=== PATIENT | female | born 1960 | race Caucasian/White ===

== ENCOUNTER 2019-06-29 12:35 | Inpatient (IN) ==
[2019-06-29] MEDS ORDERED: Naloxone 0.4 MG/ML INJ IVP PRN (15:45)
[2019-06-29] MEDS ORDERED: *HR* HYDROcodone/Acet 5/325 mg TABLET PO PRN (15:45)
[2019-06-29] MEDS ORDERED: Acetaminophen 325 MG TABLET PO PRN (15:45)
[2019-06-29] MEDS ORDERED: 0.9 % Sodium Chloride 1,000 ML IVC SCH (15:45)
[2019-06-29] MEDS ORDERED: *HR* OxyCODONE Immed Rel 5 MG TABLET PO PRN (15:45)
[2019-06-29] MEDS ORDERED: *HR* Dextrose 50 % in Water (Syg) 50 ML SYRINGE IVP PRN (16:12)
[2019-06-29] MEDS ORDERED: D5% in Water 1,000 ML IVC PRN (16:12)
[2019-06-29] MEDS ORDERED: Dextrose Gel 15 GM/37.5 ML TUBE PO PRN ×2 (16:12)
[2019-06-29] MEDS: Nicotine 21 MG PATCH.TD24 TD SCH (18:02)
[2019-06-29] MEDS: Insulin LISPRO 300 UNITS/3 ML VIAL SQ SCH (18:02)
[2019-06-29] MEDS: carvediloL 6.25 MG TABLET PO SCH (18:02)
[2019-06-29] MEDS: *HR* Heparin 5,000 UNIT/ML VIAL SQ SCH (18:02)
[2019-06-29 18:29] LABS: Estimated Average Glucose 197 mg/dl
[2019-06-29] MEDS ORDERED: Gabapentin 300 MG CAPSULE PO SCH (21:45)
[2019-06-30] MEDS: *HR* Heparin 5,000 UNIT/ML VIAL SQ SCH ×2 (04:55→16:50)
[2019-06-30 05:16] LABS: Basophils % 0.4 %; Eosinophils # 0.1 K/mcL (0.0-0.6); Eosinophils % 0.9 %; Hematocrit 34.5 % (35.3-44.9); Hemoglobin 10.7 g/dL (11.5-15.4); Immature Granulocytes % 0.2 % (0-4); Lymphocytes # 0.9 K/mcL (0.6-4.6); Lymphocytes % 11.1 %; Mean Corpuscular Hemoglobin 28.6 pg (28.0-33.3); Mean Corpuscular Volume 92.2 fL (83.0-100.0); Mean Platelet Volume 12.3 fL (9.4-12.4); Monocytes # 0.6 K/mcL (0.0-1.3); Monocytes % 7.1 %; Neutrophils # 6.5 K/mcL (1.6-8.9); Platelet Count 183 K/mcL (140-400); Red Blood Count 3.74 M/mcL (3.82-4.97); Red Cell Distribution Width 14.9 % (11.5-14.5); Segmented Neutrophils % 80.3 %
[2019-06-30 05:34] LABS: Potassium 4.3 mEq/L (3.5-5.1)
[2019-06-30] MEDS ORDERED: Vancomycin 1,000 MG, 0.9 % Sodium Chloride 1,000 ML IR ONE ×2 (06:00→19:24)
[2019-06-30] MEDS: Insulin LISPRO 300 UNITS/3 ML VIAL SQ SCH ×3 (07:34→16:50)
[2019-06-30] MEDS: Nicotine 21 MG PATCH.TD24 TD SCH (08:43)
[2019-06-30] MEDS: carvediloL 6.25 MG TABLET PO SCH (08:43)
[2019-06-30] MEDS ORDERED: Aspirin 81 MG TAB.CHEW PO SCH (09:00)
[2019-06-30] MEDS ORDERED: Gabapentin 300 MG CAPSULE PO SCH ×2 (09:00→21:00)
[2019-06-30] MEDS ORDERED: Ipratropium/Albuterol Neb 3 ML IH PRN ×2 (11:58→19:24)
[2019-06-30] MEDS ORDERED: lisinopriL 20 MG TABLET PO SCH (12:00)
[2019-06-30] MEDS ORDERED: Acetaminophen IV 1,000 MG/100 ML INFUS..BTL ONE (18:36)
[2019-06-30] MEDS ORDERED: Lidocaine -MPF 2% 2 ML VIAL ONE (18:38)
[2019-06-30] MEDS ORDERED: *HR* Dextrose 50 % in Water (Syg) 50 ML SYRINGE IVP PRN (19:24)
[2019-06-30] MEDS ORDERED: Naloxone 0.4 MG/ML INJ IVP PRN (19:24)
[2019-06-30] MEDS ORDERED: Acetaminophen 325 MG TABLET PO PRN (19:24)
[2019-06-30] MEDS ORDERED: Dextrose Gel 15 GM/37.5 ML TUBE PO PRN ×2 (19:24)
[2019-06-30] MEDS ORDERED: D5% in Water 1,000 ML IVC PRN (19:24)
[2019-06-30] MEDS: QUEtiapine Fumarate 300 MG TABLET PO SCH (20:14)
[2019-06-30] MEDS: Gabapentin 300 MG CAPSULE PO SCH (20:14)
[2019-06-30] MEDS ORDERED: QUEtiapine Fumarate 300 MG TABLET PO SCH (21:00)
[2019-07-01] MEDS: *HR* Heparin 5,000 UNIT/ML VIAL SQ SCH ×2 (05:23→18:12)
[2019-07-01 05:27] LABS: Basophils % 0.2 %; Eosinophils % 0.5 %; Hematocrit 32.8 % (35.3-44.9); Hemoglobin 10.3 g/dL (11.5-15.4); Immature Granulocytes % 0.5 % (0-4); Lymphocytes # 0.6 K/mcL (0.6-4.6); Lymphocytes % 7.6 %; Mean Corpuscular HGB Conc 31.4 g/dL (31.6-35.5); Mean Corpuscular Hemoglobin 28.9 pg (28.0-33.3); Mean Corpuscular Volume 92.1 fL (83.0-100.0); Mean Platelet Volume 11.9 fL (9.4-12.4); Monocytes # 0.6 K/mcL (0.0-1.3); Monocytes % 6.6 %; Platelet Count 163 K/mcL (140-400); Red Blood Count 3.56 M/mcL (3.82-4.97); Red Cell Distribution Width 14.9 % (11.5-14.5); Segmented Neutrophils % 84.6 %; White Blood Count 8.3 K/mcL (4.3-11.1)
[2019-07-01 05:48] LABS: Calcium 7.8 mg/dL (8.6-10.3); Magnesium 1.6 mg/dL (1.6-2.6); Phosphorous 3.8 mg/dL (2.7-4.5); Potassium 4.1 mEq/L (3.5-5.1)
[2019-07-01] MEDS: carvediloL 6.25 MG TABLET PO SCH ×3 (07:58→18:12)
[2019-07-01] MEDS: Insulin LISPRO 300 UNITS/3 ML VIAL SQ SCH ×4 (08:47→22:16)
[2019-07-01] MEDS: lisinopriL 20 MG TABLET PO SCH (08:48)
[2019-07-01] MEDS: Nicotine 21 MG PATCH.TD24 TD SCH (08:48)
[2019-07-01] MEDS: Aspirin 81 MG TAB.CHEW PO SCH (08:48)
[2019-07-01] MEDS: Gabapentin 300 MG CAPSULE PO SCH ×2 (08:48→21:38)
[2019-07-01] MEDS ORDERED: Piperacillin/Tazobactam 3.375 GM in 0.9 % Sodium Chloride Mini Bag 100 ML IVPB SCH (09:30)
[2019-07-01] MEDS: *HR* OxyCODONE Immed Rel 5 MG TABLET PO PRN (11:52)
[2019-07-01] MEDS: Piperacillin/Tazobactam 3.375 GM in 0.9 % Sodium Chloride Mini Bag 100 ML IVPB SCH (18:12)
[2019-07-01] MEDS: QUEtiapine Fumarate 300 MG TABLET PO SCH (21:38)
[2019-07-02] MEDS: Piperacillin/Tazobactam 3.375 GM in 0.9 % Sodium Chloride Mini Bag 100 ML IVPB SCH ×2 (01:50→11:09)
[2019-07-02 06:36] LABS: Calcium 6.7 mg/dL (8.6-10.3); Potassium 3.9 mEq/L (3.5-5.1)
[2019-07-02] MEDS: *HR* Heparin 5,000 UNIT/ML VIAL SQ SCH ×2 (07:13→18:11)
[2019-07-02] MEDS ORDERED: Aminoglycoside Consult 1 EACH MC ONE (08:15)
[2019-07-02] MEDS: Insulin LISPRO 300 UNITS/3 ML VIAL SQ SCH ×4 (08:50→20:56)
[2019-07-02] MEDS: Gabapentin 300 MG CAPSULE PO SCH ×2 (08:51→20:50)
[2019-07-02] MEDS: carvediloL 6.25 MG TABLET PO SCH ×2 (08:51→16:01)
[2019-07-02] MEDS: Aspirin 81 MG TAB.CHEW PO SCH (08:51)
[2019-07-02] MEDS: lisinopriL 20 MG TABLET PO SCH (08:51)
[2019-07-02] MEDS: Nicotine 21 MG PATCH.TD24 TD SCH (08:51)
[2019-07-02] MEDS: *HR* OxyCODONE Immed Rel 5 MG TABLET PO PRN ×2 (11:56→18:11)
[2019-07-02] MEDS: *HR* HYDROcodone/Acet 5/325 mg TABLET PO PRN (16:08)
[2019-07-02] MEDS ORDERED: levoFLOXacin 500 MG/100 ML 500 MG/100 ML BAG IVPB SCH (19:00)
[2019-07-02] MEDS: QUEtiapine Fumarate 300 MG TABLET PO SCH (20:50)
[2019-07-03 02:51] LABS: Hematocrit 28.9 % (35.3-44.9); Hemoglobin 8.8 g/dL (11.5-15.4); Mean Corpuscular HGB Conc 30.4 g/dL (31.6-35.5); Mean Corpuscular Hemoglobin 28.3 pg (28.0-33.3); Mean Corpuscular Volume 92.9 fL (83.0-100.0); Mean Platelet Volume 12.4 fL (9.4-12.4); Platelet Count 150 K/mcL (140-400); Red Blood Count 3.11 M/mcL (3.82-4.97); Red Cell Distribution Width 14.6 % (11.5-14.5); White Blood Count 5.4 K/mcL (4.3-11.1)
[2019-07-03 03:39] LABS: Calcium 7.1 mg/dL (8.6-10.3); Potassium 5.4 mEq/L (3.5-5.1)
[2019-07-03] MEDS: *HR* Heparin 5,000 UNIT/ML VIAL SQ SCH ×2 (05:41→17:15)
[2019-07-03] MEDS: Aspirin 81 MG TAB.CHEW PO SCH (08:40)
[2019-07-03] MEDS: Gabapentin 300 MG CAPSULE PO SCH (08:40)
[2019-07-03] MEDS: Nicotine 21 MG PATCH.TD24 TD SCH (08:41)
[2019-07-03] MEDS: polyethylene glycoL 3350 17 GM POWD.PACK PO SCH (08:41)
[2019-07-03] MEDS: carvediloL 6.25 MG TABLET PO SCH ×2 (08:41→17:15)
[2019-07-03] MEDS: Insulin LISPRO 300 UNITS/3 ML VIAL SQ SCH ×4 (08:42→21:41)
[2019-07-03] MEDS ORDERED: Calcium Gluconate 1gm/50mL 1 GM/50 ML BAG IVPB ONE (11:34)
[2019-07-03] MEDS: ceFAZolin 1,000 MG in Water for inj. (sterile) 10 ML IVP SCH (17:15)
[2019-07-03] MEDS: QUEtiapine Fumarate 300 MG TABLET PO SCH (21:42)
[2019-07-04] MEDS: ceFAZolin 1,000 MG in Water for inj. (sterile) 10 ML IVP SCH ×2 (03:16→16:13)
[2019-07-04 05:18] LABS: Calcium 7.2 mg/dL (8.6-10.3); Potassium 5.2 mEq/L (3.5-5.1)
[2019-07-04] MEDS: *HR* Heparin 5,000 UNIT/ML VIAL SQ SCH ×2 (05:58→17:15)
[2019-07-04] MEDS: Insulin LISPRO 300 UNITS/3 ML VIAL SQ SCH ×4 (07:50→21:32)
[2019-07-04] MEDS: carvediloL 6.25 MG TABLET PO SCH ×2 (08:52→17:15)
[2019-07-04] MEDS: Aspirin 81 MG TAB.CHEW PO SCH (08:52)
[2019-07-04] MEDS: Nicotine 21 MG PATCH.TD24 TD SCH (08:53)
[2019-07-04] MEDS: Gabapentin 300 MG CAPSULE PO SCH (08:53)
[2019-07-04] MEDS: polyethylene glycoL 3350 17 GM POWD.PACK PO SCH (08:53)
[2019-07-04] MEDS ORDERED: Lidocaine -MPF 1% 5 ML AMPUL INFILT ONE (13:39)
[2019-07-04] MEDS: QUEtiapine Fumarate 300 MG TABLET PO SCH (21:31)
[2019-07-04 22:07] LABS: Protein/Creatinine Ratio,Urine 4.63 mg/mg (0.00-0.20); Sodium, Urine 43.3 mEq/L
[2019-07-04 22:39] LABS: Bilirubin,Urine Negative (Negative); Blood,Urine Negative (Negative); Clarity,Urine Clear (Clear); Color,Urine Yellow (Yellow); Glucose,Urine (UA) 100 mg/dL (Normal); Ketones,Urine Negative (Negative); Leukocyte Esterase,Urine Negative (Negative); Nitrite,Urine Negative (Negative); Protein,Urine >=300 mg/dL (Neg-Trace); Specific Gravity,Urine 1.013 (1.010-1.025); Urobilinogen,Urine Normal (Normal)
[2019-07-04 22:41] LABS: Bacteria,Urine None Seen per hpf (None-Few); Hyaline Casts,Urine None Seen per lpf (None-Few); Squamous Epithelial Cell,Urine Moderate per lpf (None-Few); WBC,Urine 0-3 per hpf (0-3)
[2019-07-05] MEDS: ceFAZolin 1,000 MG in Water for inj. (sterile) 10 ML IVP SCH ×2 (04:08→17:20)
[2019-07-05 05:40] LABS: Hematocrit 27.3 % (35.3-44.9); Hemoglobin 8.6 g/dL (11.5-15.4); Mean Corpuscular HGB Conc 31.5 g/dL (31.6-35.5); Mean Corpuscular Hemoglobin 28.4 pg (28.0-33.3); Mean Corpuscular Volume 90.1 fL (83.0-100.0); Mean Platelet Volume 12.5 fL (9.4-12.4); Platelet Count 173 K/mcL (140-400); Red Blood Count 3.03 M/mcL (3.82-4.97); Red Cell Distribution Width 14.5 % (11.5-14.5); White Blood Count 5.8 K/mcL (4.3-11.1)
[2019-07-05] MEDS: *HR* Heparin 5,000 UNIT/ML VIAL SQ SCH ×2 (05:57→17:20)
[2019-07-05 06:02] LABS: Calcium 7.6 mg/dL (8.6-10.3); Potassium 5.8 mEq/L (3.5-5.1)
[2019-07-05] MEDS ORDERED: 0.9 % Sodium Chloride 250 ML IVC PRN (07:21)
[2019-07-05] MEDS ORDERED: 0.9 % Sodium Chloride 1,000 ML PRIME SCH (07:30)
[2019-07-05] MEDS: Insulin LISPRO 300 UNITS/3 ML VIAL SQ SCH ×4 (07:30→21:04)
[2019-07-05 08:33] LABS: Hepatitis B Surface Antibody < 3.10 mIU/mL
[2019-07-05 08:44] LABS: Hepatitis B Surface Antigen Nonreactive (Nonreactive)
[2019-07-05] MEDS ORDERED: *HR* Heparin 5,000 UNIT/ML VIAL ONE (09:34)
[2019-07-05] MEDS: amLODIPine 5 MG TABLET PO SCH (10:29)
[2019-07-05] MEDS: Gabapentin 300 MG CAPSULE PO SCH (10:29)
[2019-07-05] MEDS: Aspirin 81 MG TAB.CHEW PO SCH (10:29)
[2019-07-05] MEDS: carvediloL 6.25 MG TABLET PO SCH ×2 (10:29→17:21)
[2019-07-05] MEDS: Nicotine 21 MG PATCH.TD24 TD SCH (10:30)
[2019-07-05] MEDS: polyethylene glycoL 3350 17 GM POWD.PACK PO SCH (10:30)
[2019-07-05] MEDS: *HR* OxyCODONE Immed Rel 5 MG TABLET PO PRN (10:47)
[2019-07-05 10:56] LABS: Folate 5.2 ng/mL (3.0-16.0); Vitamin B12 328 pg/mL (250-1100)
[2019-07-05] MEDS ORDERED: *HR* Heparin 10,000 UNIT/10 ML VIAL IV PRN (16:32)
[2019-07-05] MEDS: *HR* Heparin 10,000 UNIT/10 ML VIAL ONE ×2 (16:41→17:31)
[2019-07-05] MEDS: QUEtiapine Fumarate 300 MG TABLET PO SCH (21:04)
[2019-07-05] MEDS: Sennosides/Docusate Sodium TABLET PO SCH (21:04)
[2019-07-06] MEDS: ceFAZolin 1,000 MG in Water for inj. (sterile) 10 ML IVP SCH ×2 (03:41→16:32)
[2019-07-06 03:59] LABS: Basophils % 0.2 %; Eosinophils # 0.1 K/mcL (0.0-0.6); Eosinophils % 1.7 %; Hematocrit 24.1 % (35.3-44.9); Hemoglobin 7.7 g/dL (11.5-15.4); Immature Granulocytes % 0.2 % (0-4); Lymphocytes # 1.1 K/mcL (0.6-4.6); Lymphocytes % 21.9 %; Mean Corpuscular Hemoglobin 28.7 pg (28.0-33.3); Mean Corpuscular Volume 89.9 fL (83.0-100.0); Mean Platelet Volume 11.8 fL (9.4-12.4); Monocytes # 0.5 K/mcL (0.0-1.3); Monocytes % 9.9 %; Neutrophils # 3.2 K/mcL (1.6-8.9); Platelet Count 147 K/mcL (140-400); Red Blood Count 2.68 M/mcL (3.82-4.97); Red Cell Distribution Width 14.5 % (11.5-14.5); Segmented Neutrophils % 66.1 %; White Blood Count 4.8 K/mcL (4.3-11.1)
[2019-07-06 04:14] LABS: Calcium 7.5 mg/dL (8.6-10.3); Magnesium 1.8 mg/dL (1.6-2.6); Phosphorous 4.6 mg/dL (2.7-4.5); Potassium 5.1 mEq/L (3.5-5.1)
[2019-07-06] MEDS: *HR* Heparin 5,000 UNIT/ML VIAL SQ SCH ×2 (05:58→16:33)
[2019-07-06] MEDS ORDERED: 0.9 % Sodium Chloride 250 ML IVC PRN (07:45)
[2019-07-06] MEDS: Nicotine 21 MG PATCH.TD24 TD SCH (07:52)
[2019-07-06] MEDS: Insulin LISPRO 300 UNITS/3 ML VIAL SQ SCH ×4 (07:52→20:07)
[2019-07-06] MEDS: carvediloL 6.25 MG TABLET PO SCH ×2 (07:54→16:33)
[2019-07-06] MEDS: polyethylene glycoL 3350 17 GM POWD.PACK PO SCH (07:54)
[2019-07-06] MEDS: lisinopriL 20 MG TABLET PO SCH (07:54)
[2019-07-06] MEDS: amLODIPine 5 MG TABLET PO SCH (07:54)
[2019-07-06] MEDS: Gabapentin 300 MG CAPSULE PO SCH (07:54)
[2019-07-06] MEDS: Aspirin 81 MG TAB.CHEW PO SCH (07:54)
[2019-07-06] MEDS: Sennosides/Docusate Sodium TABLET PO SCH ×2 (07:54→20:07)
[2019-07-06] MEDS ORDERED: *HR* Heparin 10,000 UNIT/10 ML VIAL IV PRN (10:05)
[2019-07-06] MEDS: QUEtiapine Fumarate 300 MG TABLET PO SCH (20:07)
[2019-07-07] MEDS: ceFAZolin 1,000 MG in Water for inj. (sterile) 10 ML IVP SCH (03:31)
[2019-07-07 03:57] LABS: Basophils % 0.2 %; Eosinophils # 0.1 K/mcL (0.0-0.6); Eosinophils % 1.2 %; Hematocrit 25.8 % (35.3-44.9); Hemoglobin 8.1 g/dL (11.5-15.4); Immature Granulocytes % 0.4 % (0-4); Lymphocytes # 1.2 K/mcL (0.6-4.6); Lymphocytes % 23.8 %; Mean Corpuscular HGB Conc 31.4 g/dL (31.6-35.5); Mean Corpuscular Hemoglobin 27.9 pg (28.0-33.3); Mean Platelet Volume 12.1 fL (9.4-12.4); Monocytes # 0.6 K/mcL (0.0-1.3); Monocytes % 11.7 %; Neutrophils # 3.1 K/mcL (1.6-8.9); Platelet Count 156 K/mcL (140-400); Red Cell Distribution Width 14.3 % (11.5-14.5); Segmented Neutrophils % 62.7 %
[2019-07-07 04:15] LABS: Calcium 7.6 mg/dL (8.6-10.3); Potassium 5.1 mEq/L (3.5-5.1)
[2019-07-07] MEDS: *HR* Heparin 5,000 UNIT/ML VIAL SQ SCH ×2 (05:42→16:21)
[2019-07-07] MEDS: Insulin LISPRO 300 UNITS/3 ML VIAL SQ SCH ×4 (07:43→21:19)
[2019-07-07] MEDS: Gabapentin 300 MG CAPSULE PO SCH ×2 (08:01→21:18)
[2019-07-07] MEDS: lisinopriL 20 MG TABLET PO SCH (08:01)
[2019-07-07] MEDS: carvediloL 6.25 MG TABLET PO SCH ×2 (08:01→16:21)
[2019-07-07] MEDS: amLODIPine 5 MG TABLET PO SCH (08:01)
[2019-07-07] MEDS: polyethylene glycoL 3350 17 GM POWD.PACK PO SCH (08:02)
[2019-07-07] MEDS: Nicotine 21 MG PATCH.TD24 TD SCH (08:02)
[2019-07-07] MEDS: Aspirin 81 MG TAB.CHEW PO SCH (08:02)
[2019-07-07] MEDS: Sennosides/Docusate Sodium TABLET PO SCH ×2 (08:03→21:18)
[2019-07-07] MEDS: *HR* HYDROcodone/Acet 5/325 mg TABLET PO PRN (12:15)
[2019-07-07] MEDS: ceFAZolin 2,000 MG in 0.9 % Sodium Chloride 100 ML IVPB SCH (16:20)
[2019-07-07] MEDS: QUEtiapine Fumarate 300 MG TABLET PO SCH (21:18)
[2019-07-08] MEDS: ceFAZolin 2,000 MG in 0.9 % Sodium Chloride 100 ML IVPB SCH ×2 (04:21→17:05)
[2019-07-08 04:53] LABS: Hematocrit 25.1 % (35.3-44.9); Mean Corpuscular HGB Conc 31.9 g/dL (31.6-35.5); Mean Corpuscular Hemoglobin 28.8 pg (28.0-33.3); Mean Corpuscular Volume 90.3 fL (83.0-100.0); Platelet Count 154 K/mcL (140-400); Red Blood Count 2.78 M/mcL (3.82-4.97); Red Cell Distribution Width 14.6 % (11.5-14.5); White Blood Count 5.8 K/mcL (4.3-11.1)
[2019-07-08 05:12] LABS: Calcium 7.7 mg/dL (8.6-10.3); Potassium 5.9 mEq/L (3.5-5.1)
[2019-07-08] MEDS: *HR* Heparin 5,000 UNIT/ML VIAL SQ SCH ×2 (06:23→17:08)
[2019-07-08] MEDS: Insulin LISPRO 300 UNITS/3 ML VIAL SQ SCH ×4 (07:22→21:03)
[2019-07-08] MEDS: Nicotine 21 MG PATCH.TD24 TD SCH (07:23)
[2019-07-08] MEDS: Aspirin 81 MG TAB.CHEW PO SCH (07:23)
[2019-07-08] MEDS: carvediloL 6.25 MG TABLET PO SCH ×2 (07:23→17:04)
[2019-07-08] MEDS: Sennosides/Docusate Sodium TABLET PO SCH ×2 (07:23→21:03)
[2019-07-08] MEDS: lisinopriL 20 MG TABLET PO SCH (07:23)
[2019-07-08] MEDS: polyethylene glycoL 3350 17 GM POWD.PACK PO SCH (07:23)
[2019-07-08] MEDS: Gabapentin 300 MG CAPSULE PO SCH ×2 (07:23→21:03)
[2019-07-08] MEDS: amLODIPine 5 MG TABLET PO SCH (07:23)
[2019-07-08] MEDS: *HR* HYDROcodone/Acet 5/325 mg TABLET PO PRN ×2 (17:19→23:49)
[2019-07-08] MEDS: QUEtiapine Fumarate 300 MG TABLET PO SCH (21:03)
[2019-07-09 04:11] LABS: ABG Base Excess 6 mEq/L (-2 to 3); ABG HCO3 32 mEq/L (21-27); ABG Oxygen Saturation 94 % (95-98); ABG PCO2 49 mmHg (35-45); ABG PH 7.42 pH Units (7.32-7.45); ABG PO2 70 mmHg (85-104); ABG TCO2 33 mEq/L (20-26)
[2019-07-09] MEDS: ceFAZolin 2,000 MG in 0.9 % Sodium Chloride 100 ML IVPB SCH ×2 (04:23→16:53)
[2019-07-09 05:38] LABS: Hemoglobin 8.1 g/dL (11.5-15.4); Mean Corpuscular HGB Conc 31.2 g/dL (31.6-35.5); Mean Corpuscular Hemoglobin 28.2 pg (28.0-33.3); Mean Corpuscular Volume 90.6 fL (83.0-100.0); Mean Platelet Volume 12.3 fL (9.4-12.4); Platelet Count 147 K/mcL (140-400); Red Blood Count 2.87 M/mcL (3.82-4.97); Red Cell Distribution Width 14.6 % (11.5-14.5); White Blood Count 6.5 K/mcL (4.3-11.1)
[2019-07-09 06:03] LABS: Calcium 7.8 mg/dL (8.6-10.3); Potassium 5.4 mEq/L (3.5-5.1)
[2019-07-09] MEDS: *HR* Heparin 5,000 UNIT/ML VIAL SQ SCH ×2 (06:07→16:52)
[2019-07-09] MEDS: lisinopriL 20 MG TABLET PO SCH (08:12)
[2019-07-09] MEDS: Nicotine 21 MG PATCH.TD24 TD SCH (08:12)
[2019-07-09] MEDS: carvediloL 6.25 MG TABLET PO SCH ×2 (08:12→16:52)
[2019-07-09] MEDS: Insulin LISPRO 300 UNITS/3 ML VIAL SQ SCH ×4 (08:12→20:40)
[2019-07-09] MEDS: amLODIPine 5 MG TABLET PO SCH (08:12)
[2019-07-09] MEDS: Gabapentin 300 MG CAPSULE PO SCH ×2 (08:12→20:40)
[2019-07-09] MEDS: Aspirin 81 MG TAB.CHEW PO SCH (08:12)
[2019-07-09] MEDS: Sennosides/Docusate Sodium TABLET PO SCH ×2 (08:17→20:42)
[2019-07-09] MEDS: polyethylene glycoL 3350 17 GM POWD.PACK PO SCH (08:17)
[2019-07-09] MEDS ORDERED: predniSONE 20 MG TABLET PO SCH (09:00)
[2019-07-09] MEDS: Ipratropium/Albuterol Neb 3 ML IH SCH ×5 (10:34→19:36)
[2019-07-09] MEDS: QUEtiapine Fumarate 300 MG TABLET PO SCH (20:40)
[2019-07-09] MEDS ORDERED: Insulin DETEMIR 100 UNIT/ML X5UNITS SQ ONE (21:00)
[2019-07-10] MEDS: Ipratropium/Albuterol Neb 3 ML IH SCH ×7 (00:02→23:43)
[2019-07-10] MEDS: *HR* Heparin 5,000 UNIT/ML VIAL SQ SCH ×2 (04:52→17:56)
[2019-07-10] MEDS: ceFAZolin 2,000 MG in 0.9 % Sodium Chloride 100 ML IVPB SCH ×2 (04:52→17:57)
[2019-07-10 05:42] LABS: Hematocrit 25.5 % (35.3-44.9); Mean Corpuscular HGB Conc 31.4 g/dL (31.6-35.5); Mean Corpuscular Hemoglobin 28.1 pg (28.0-33.3); Mean Corpuscular Volume 89.5 fL (83.0-100.0); Mean Platelet Volume 11.8 fL (9.4-12.4); Platelet Count 138 K/mcL (140-400); Red Blood Count 2.85 M/mcL (3.82-4.97); Red Cell Distribution Width 14.6 % (11.5-14.5); White Blood Count 9.5 K/mcL (4.3-11.1)
[2019-07-10 05:52] LABS: Calcium 7.5 mg/dL (8.6-10.3); Potassium 5.2 mEq/L (3.5-5.1)
[2019-07-10] MEDS: lisinopriL 20 MG TABLET PO SCH (08:52)
[2019-07-10] MEDS: Gabapentin 300 MG CAPSULE PO SCH ×2 (08:52→21:39)
[2019-07-10] MEDS: Sennosides/Docusate Sodium TABLET PO SCH ×2 (08:52→21:40)
[2019-07-10] MEDS: amLODIPine 5 MG TABLET PO SCH (08:52)
[2019-07-10] MEDS: polyethylene glycoL 3350 17 GM POWD.PACK PO SCH (08:52)
[2019-07-10] MEDS: Aspirin 81 MG TAB.CHEW PO SCH (08:52)
[2019-07-10] MEDS: carvediloL 6.25 MG TABLET PO SCH ×2 (08:52→17:56)
[2019-07-10] MEDS: Insulin LISPRO 300 UNITS/3 ML VIAL SQ SCH ×4 (08:53→21:40)
[2019-07-10] MEDS: Nicotine 21 MG PATCH.TD24 TD SCH (08:53)
[2019-07-10] MEDS: 0.9 % Sodium Chloride 1,000 ML IVC SCH (12:11)
[2019-07-10] MEDS ORDERED: Heparin 1,000 UNITS/500 mL 500 ML ONE (13:17)
[2019-07-10] MEDS ORDERED: *HR* Midazolam HCl 2 MG/2 ML VIAL IVP ONE (14:00)
[2019-07-10] MEDS ORDERED: *HR* FentaNYL (PF) 100 MCG/2 ML VIAL IVP ONE (14:01)
[2019-07-10] MEDS ORDERED: 0.9 % Sodium Chloride 500 ML ONE (14:14)
[2019-07-10] MEDS ORDERED: *HR* Heparin 5,000 UNIT/ML VIAL ONE (14:33)
[2019-07-10] MEDS: metroNIDAZOLE 500 MG TABLET PO SCH ×2 (14:57→21:40)
[2019-07-10] MEDS ORDERED: 0.9 % Sodium Chloride 2,000 ML ONE (15:01)
[2019-07-10] MEDS ORDERED: Isovue-300 150 ML INFUS..BTL ONE (15:01)
[2019-07-10] MEDS ORDERED: *HR* Heparin 10,000 UNIT/10 ML VIAL ONE (15:01)
[2019-07-10] MEDS ORDERED: *HR* FentaNYL (PF) 100 MCG/2 ML VIAL ONE (15:35)
[2019-07-10] MEDS ORDERED: *HR* Midazolam HCl 2 MG/2 ML VIAL ONE (15:36)
[2019-07-10] MEDS: QUEtiapine Fumarate 300 MG TABLET PO SCH (21:40)
[2019-07-11] MEDS: Ipratropium/Albuterol Neb 3 ML IH SCH ×5 (03:32→20:31)
[2019-07-11] MEDS: 0.9 % Sodium Chloride 1,000 ML IVC SCH (04:08)
[2019-07-11 06:39] LABS: Hematocrit 26.9 % (35.3-44.9); Hemoglobin 8.3 g/dL (11.5-15.4); Mean Corpuscular HGB Conc 30.9 g/dL (31.6-35.5); Mean Corpuscular Hemoglobin 28.2 pg (28.0-33.3); Mean Corpuscular Volume 91.5 fL (83.0-100.0); Mean Platelet Volume 12.2 fL (9.4-12.4); Platelet Count 157 K/mcL (140-400); Red Blood Count 2.94 M/mcL (3.82-4.97); Red Cell Distribution Width 14.8 % (11.5-14.5); White Blood Count 9.1 K/mcL (4.3-11.1)
[2019-07-11 06:59] LABS: Calcium 7.7 mg/dL (8.6-10.3); Potassium 5.6 mEq/L (3.5-5.1)
[2019-07-11] MEDS ORDERED: *HR* Heparin 10,000 UNIT/10 ML VIAL IV PRN (07:46)
[2019-07-11] MEDS ORDERED: 0.9 % Sodium Chloride 250 ML IVC PRN (07:46)
[2019-07-11] MEDS ORDERED: 0.9 % Sodium Chloride 1,000 ML PRIME SCH (08:00)
[2019-07-11] MEDS: Insulin LISPRO 300 UNITS/3 ML VIAL SQ SCH ×4 (08:41→21:35)
[2019-07-11] MEDS: metroNIDAZOLE 500 MG TABLET PO SCH ×3 (08:41→21:34)
[2019-07-11] MEDS: Nicotine 21 MG PATCH.TD24 TD SCH (08:42)
[2019-07-11] MEDS: Aspirin 81 MG TAB.CHEW PO SCH (08:43)
[2019-07-11] MEDS: polyethylene glycoL 3350 17 GM POWD.PACK PO SCH (08:43)
[2019-07-11] MEDS: Sennosides/Docusate Sodium TABLET PO SCH ×2 (08:43→21:34)
[2019-07-11] MEDS: Gabapentin 300 MG CAPSULE PO SCH ×2 (08:43→21:34)
[2019-07-11] MEDS: *HR* Heparin 5,000 UNIT/ML VIAL SQ SCH ×2 (08:56→18:22)
[2019-07-11] MEDS: ceFAZolin 2,000 MG in 0.9 % Sodium Chloride 100 ML IVPB SCH (09:00)
[2019-07-11] MEDS: amLODIPine 5 MG TABLET PO SCH (13:25)
[2019-07-11] MEDS: carvediloL 6.25 MG TABLET PO SCH ×2 (13:25→15:48)
[2019-07-11] MEDS: lisinopriL 20 MG TABLET PO SCH (13:25)
[2019-07-11] MEDS ORDERED: ceFAZolin 1,000 MG in Water for inj. (sterile) 10 ML IVP ONE (14:29)
[2019-07-11] MEDS: QUEtiapine Fumarate 300 MG TABLET PO SCH (21:34)
[2019-07-12] MEDS: Ipratropium/Albuterol Neb 3 ML IH SCH ×6 (00:08→20:02)
[2019-07-12 02:26] LABS: Hematocrit 23.5 % (35.3-44.9); Hemoglobin 7.3 g/dL (11.5-15.4); Mean Corpuscular HGB Conc 31.1 g/dL (31.6-35.5); Mean Corpuscular Hemoglobin 28.4 pg (28.0-33.3); Mean Corpuscular Volume 91.4 fL (83.0-100.0); Mean Platelet Volume 11.6 fL (9.4-12.4); Platelet Count 144 K/mcL (140-400); Red Blood Count 2.57 M/mcL (3.82-4.97); Red Cell Distribution Width 14.8 % (11.5-14.5); White Blood Count 6.9 K/mcL (4.3-11.1)
[2019-07-12 02:45] LABS: Calcium 7.4 mg/dL (8.6-10.3); Potassium 4.8 mEq/L (3.5-5.1)
[2019-07-12] MEDS: *HR* Heparin 5,000 UNIT/ML VIAL SQ SCH ×2 (05:51→16:40)
[2019-07-12] MEDS: Insulin LISPRO 300 UNITS/3 ML VIAL SQ SCH ×4 (07:46→20:49)
[2019-07-12] MEDS: amLODIPine 5 MG TABLET PO SCH (07:54)
[2019-07-12] MEDS: lisinopriL 20 MG TABLET PO SCH (07:54)
[2019-07-12] MEDS: metroNIDAZOLE 500 MG TABLET PO SCH ×3 (07:54→20:49)
[2019-07-12] MEDS: Aspirin 81 MG TAB.CHEW PO SCH (07:54)
[2019-07-12] MEDS: carvediloL 6.25 MG TABLET PO SCH ×2 (07:54→16:40)
[2019-07-12] MEDS: polyethylene glycoL 3350 17 GM POWD.PACK PO SCH (07:55)
[2019-07-12] MEDS: Nicotine 21 MG PATCH.TD24 TD SCH (07:55)
[2019-07-12] MEDS: Sennosides/Docusate Sodium TABLET PO SCH ×2 (07:56→20:48)
[2019-07-12] MEDS ORDERED: ceFAZolin 2,000 MG in 0.9 % Sodium Chloride 100 ML IVPB SCH (14:00)
[2019-07-12] MEDS: Gabapentin 300 MG CAPSULE PO SCH (20:49)
[2019-07-12] MEDS: QUEtiapine Fumarate 300 MG TABLET PO SCH (20:49)
[2019-07-12] MEDS ORDERED: Ipratropium/Albuterol Neb 3 ML IH PRN (23:03)
[2019-07-13 04:59] LABS: Hematocrit 25.3 % (35.3-44.9); Hemoglobin 7.7 g/dL (11.5-15.4); Mean Corpuscular HGB Conc 30.4 g/dL (31.6-35.5); Mean Corpuscular Hemoglobin 27.8 pg (28.0-33.3); Mean Corpuscular Volume 91.3 fL (83.0-100.0); Platelet Count 155 K/mcL (140-400); Red Blood Count 2.77 M/mcL (3.82-4.97); Red Cell Distribution Width 14.8 % (11.5-14.5); White Blood Count 6.6 K/mcL (4.3-11.1)
[2019-07-13 05:20] LABS: Calcium 7.8 mg/dL (8.6-10.3); Magnesium 1.9 mg/dL (1.6-2.6); Phosphorous 4.7 mg/dL (2.7-4.5); Potassium 5.5 mEq/L (3.5-5.1)
[2019-07-13] MEDS: *HR* Heparin 5,000 UNIT/ML VIAL SQ SCH ×2 (05:33→17:14)
[2019-07-13] MEDS ORDERED: Regadenoson 0.4 MG/5 ML SYRINGE IVP ONE (06:34)
[2019-07-13] MEDS ORDERED: 0.9 % Sodium Chloride 250 ML IVC PRN (07:42)
[2019-07-13] MEDS ORDERED: *HR* Heparin 10,000 UNIT/10 ML VIAL IV PRN (07:42)
[2019-07-13] MEDS ORDERED: 0.9 % Sodium Chloride 1,000 ML PRIME SCH (07:45)
[2019-07-13] MEDS: Insulin LISPRO 300 UNITS/3 ML VIAL SQ SCH ×4 (07:51→20:37)
[2019-07-13] MEDS: carvediloL 6.25 MG TABLET PO SCH ×2 (08:00→17:14)
[2019-07-13] MEDS: polyethylene glycoL 3350 17 GM POWD.PACK PO SCH (08:00)
[2019-07-13] MEDS: Sennosides/Docusate Sodium TABLET PO SCH ×2 (08:00→20:37)
[2019-07-13] MEDS: metroNIDAZOLE 500 MG TABLET PO SCH ×3 (08:07→20:36)
[2019-07-13] MEDS: amLODIPine 5 MG TABLET PO SCH (13:28)
[2019-07-13] MEDS: lisinopriL 20 MG TABLET PO SCH (13:28)
[2019-07-13] MEDS: Aspirin 81 MG TAB.CHEW PO SCH (13:28)
[2019-07-13] MEDS ORDERED: ceFAZolin 2,000 MG in 0.9 % Sodium Chloride 100 ML IVPB ONE (14:00)
[2019-07-13] MEDS: Gabapentin 300 MG CAPSULE PO SCH (20:37)
[2019-07-13] MEDS: QUEtiapine Fumarate 300 MG TABLET PO SCH (20:37)
[2019-07-14 03:42] LABS: Basophils % 0.6 %; Eosinophils # 0.1 K/mcL (0.0-0.6); Eosinophils % 1.8 %; Hematocrit 26.2 % (35.3-44.9); Hemoglobin 8.1 g/dL (11.5-15.4); Immature Granulocytes % 0.3 % (0-4); Lymphocytes # 1.4 K/mcL (0.6-4.6); Lymphocytes % 21.1 %; Mean Corpuscular HGB Conc 30.9 g/dL (31.6-35.5); Mean Corpuscular Hemoglobin 27.9 pg (28.0-33.3); Mean Corpuscular Volume 90.3 fL (83.0-100.0); Mean Platelet Volume 12.1 fL (9.4-12.4); Monocytes # 0.5 K/mcL (0.0-1.3); Monocytes % 8.2 %; Neutrophils # 4.5 K/mcL (1.6-8.9); Platelet Count 168 K/mcL (140-400); Red Cell Distribution Width 15.1 % (11.5-14.5); White Blood Count 6.6 K/mcL (4.3-11.1)
[2019-07-14 03:56] LABS: Calcium 7.6 mg/dL (8.6-10.3); Magnesium 1.9 mg/dL (1.6-2.6)
[2019-07-14] MEDS: *HR* Heparin 5,000 UNIT/ML VIAL SQ SCH ×2 (05:00→17:19)
[2019-07-14] MEDS: carvediloL 6.25 MG TABLET PO SCH ×2 (09:29→17:19)
[2019-07-14] MEDS: polyethylene glycoL 3350 17 GM POWD.PACK PO SCH (09:30)
[2019-07-14] MEDS: Insulin LISPRO 300 UNITS/3 ML VIAL SQ SCH ×4 (09:30→21:34)
[2019-07-14] MEDS: Sennosides/Docusate Sodium TABLET PO SCH ×2 (09:39→21:35)
[2019-07-14] MEDS ORDERED: *HR* Phenylephrine 10 MG/ML VIAL ONE (09:53)
[2019-07-14] MEDS ORDERED: *HR* FentaNYL (PF) 100 MCG/2 ML VIAL ONE ×3 (09:53→12:21)
[2019-07-14] MEDS ORDERED: Dexamethasone 4 MG/ML VIAL ONE (09:57)
[2019-07-14] MEDS ORDERED: Ondansetron 4 MG/2 ML VIAL ONE (09:57)
[2019-07-14] MEDS ORDERED: *HR* Rocuronium Bromide 50 MG/5 ML VIAL ONE ×3 (09:57→14:22)
[2019-07-14] MEDS ORDERED: Lidocaine -MPF 2% 2 ML VIAL ONE (09:57)
[2019-07-14] MEDS ORDERED: *HR* Etomidate 40 MG/20 ML VIAL IVP ONE (09:57)
[2019-07-14] MEDS ORDERED: Vancomycin 1,000 MG, Sodium Chloride IRRigation 1,000 ML IR ONE (10:00)
[2019-07-14] MEDS ORDERED: Heparin 1,000 UNITS/500 mL 500 ML ONE (10:13)
[2019-07-14] MEDS ORDERED: *HR* Norepinephrine 4 MG/4 ML VIAL IVC ONE (10:55)
[2019-07-14] MEDS ORDERED: ceFAZolin 1,000 MG, Sodium Chloride IRRigation 1,000 ML IR ONE (11:00)
[2019-07-14] MEDS ORDERED: Heparin 1,000 UNITS/500 mL 1,000 ML ONE (11:04)
[2019-07-14] MEDS ORDERED: CeFAZolin Syr 2,000MG/20 ML 2,000 MG/20 ML SYRINGE IVPB ONE (12:00)
[2019-07-14] MEDS ORDERED: EPHEDrine 50 MG/ML VIAL ONE (12:10)
[2019-07-14] MEDS ORDERED: *HR* Labetalol 20 MG/4 ML SYRINGE IVP ONE (12:18)
[2019-07-14] MEDS ORDERED: *HR* Heparin 5,000 UNIT/ML VIAL ONE ×2 (13:15→14:20)
[2019-07-14] MEDS: Aspirin 81 MG TAB.CHEW PO SCH (13:17)
[2019-07-14] MEDS: metroNIDAZOLE 500 MG TABLET PO SCH ×3 (13:17→21:33)
[2019-07-14] MEDS ORDERED: *HR* Succinylcholine 200 MG/10 ML VIAL IVP ONE (13:31)
[2019-07-14] MEDS ORDERED: ceFAZolin 3,000 MG in 0.9 % Sodium Chloride 100 ML IVPB SCH (14:00)
[2019-07-14] MEDS ORDERED: Albumin Human 5% 12.5 GM/250 ML IV.SOLN ONE (14:04)
[2019-07-14] MEDS ORDERED: Albumin Human 5% 0 GM/0 ML IV.SOLN ONE (15:03)
[2019-07-14 15:15] LABS: ABG Base Excess 2 mEq/L (-2 to 3); ABG Chloride 104 mEq/L (98-107); ABG Glucose 207 mg/dL (60-95); ABG HCO3 26 mEq/L (21-27); ABG Oxygen Saturation 97 % (95-98); ABG PCO2 39 mmHg (35-45); ABG PH 7.43 pH Units (7.32-7.45); ABG PO2 87 mmHg (85-104); ABG TCO2 27 mEq/L (20-26)
[2019-07-14] MEDS ORDERED: Ringers Solution, Lactated 1,000 ML ONE (15:55)
[2019-07-14] MEDS ORDERED: *HR* HYDROcodone/Acet 5/325 mg TABLET PO PRN ×2 (16:42)
[2019-07-14] MEDS ORDERED: Acetaminophen 325 MG TABLET PO PRN (16:42)
[2019-07-14] MEDS ORDERED: D5% in Water 1,000 ML IVC PRN (16:42)
[2019-07-14] MEDS ORDERED: Dextrose Gel 15 GM/37.5 ML TUBE PO PRN ×2 (16:42)
[2019-07-14] MEDS ORDERED: *HR* OxyCODONE Immed Rel 5 MG TABLET PO PRN (16:42)
[2019-07-14] MEDS ORDERED: Ipratropium/Albuterol Neb 3 ML IH PRN (16:42)
[2019-07-14] MEDS ORDERED: 0.9 % Sodium Chloride 1,000 ML PRIME SCH (16:42)
[2019-07-14] MEDS ORDERED: Naloxone 0.4 MG/ML INJ IVP PRN ×2 (16:42)
[2019-07-14] MEDS ORDERED: *HR* Dextrose 50 % in Water (Syg) 50 ML SYRINGE IVP PRN (16:42)
[2019-07-14] MEDS ORDERED: 0.9 % Sodium Chloride 250 ML IVC PRN (16:42)
[2019-07-14] MEDS: lisinopriL 20 MG TABLET PO SCH (18:26)
[2019-07-14] MEDS: amLODIPine 5 MG TABLET PO SCH ×2 (18:26)
[2019-07-14] MEDS ORDERED: Insulin DETEMIR 100 UNIT/ML X5UNITS SQ SCH (21:00)
[2019-07-14] MEDS: Insulin DETEMIR 100 UNIT/ML X5UNITS SQ SCH (21:32)
[2019-07-14] MEDS: Gabapentin 300 MG CAPSULE PO SCH (21:33)
[2019-07-14] MEDS: QUEtiapine Fumarate 300 MG TABLET PO SCH (21:35)
[2019-07-15] MEDS: *HR* Heparin 5,000 UNIT/ML VIAL SQ SCH ×2 (05:07→16:05)
[2019-07-15] MEDS: Insulin LISPRO 300 UNITS/3 ML VIAL SQ SCH ×4 (07:52→21:37)
[2019-07-15] MEDS: lisinopriL 20 MG TABLET PO SCH (07:57)
[2019-07-15] MEDS: amLODIPine 5 MG TABLET PO SCH (07:57)
[2019-07-15] MEDS: carvediloL 6.25 MG TABLET PO SCH ×2 (07:57→16:05)
[2019-07-15] MEDS: Aspirin 81 MG TAB.CHEW PO SCH (07:57)
[2019-07-15] MEDS: metroNIDAZOLE 500 MG TABLET PO SCH ×3 (07:57→21:37)
[2019-07-15] MEDS: polyethylene glycoL 3350 17 GM POWD.PACK PO SCH (07:58)
[2019-07-15] MEDS: Sennosides/Docusate Sodium TABLET PO SCH ×2 (07:58→21:38)
[2019-07-15] MEDS: Insulin DETEMIR 100 UNIT/ML X5UNITS SQ SCH ×2 (08:01→21:37)
[2019-07-15 08:14] LABS: Basophils % 0.4 %; Eosinophils # 0.1 K/mcL (0.0-0.6); Eosinophils % 1.3 %; Hematocrit 24.7 % (35.3-44.9); Hemoglobin 7.5 g/dL (11.5-15.4); Immature Granulocytes % 0.2 % (0-4); Lymphocytes # 1.5 K/mcL (0.6-4.6); Lymphocytes % 15.9 %; Mean Corpuscular HGB Conc 30.4 g/dL (31.6-35.5); Mean Corpuscular Hemoglobin 28.2 pg (28.0-33.3); Mean Corpuscular Volume 92.9 fL (83.0-100.0); Monocytes # 0.6 K/mcL (0.0-1.3); Monocytes % 6.4 %; Neutrophils # 7.3 K/mcL (1.6-8.9); Platelet Count 171 K/mcL (140-400); Red Blood Count 2.66 M/mcL (3.82-4.97); Red Cell Distribution Width 15.3 % (11.5-14.5); Segmented Neutrophils % 75.8 %; White Blood Count 9.7 K/mcL (4.3-11.1)
[2019-07-15 08:19] LABS: Calcium 7.8 mg/dL (8.6-10.3); Magnesium 1.7 mg/dL (1.6-2.6); Potassium 5.1 mEq/L (3.5-5.1)
[2019-07-15] MEDS ORDERED: 0.9 % Sodium Chloride 250 ML IVC PRN ×2 (08:52→09:31)
[2019-07-15] MEDS ORDERED: *HR* Heparin 10,000 UNIT/10 ML VIAL IV PRN ×3 (08:52→09:31)
[2019-07-15] MEDS ORDERED: 0.9 % Sodium Chloride 1,000 ML PRIME SCH ×2 (09:00→09:45)
[2019-07-15] MEDS ORDERED: ceFAZolin 3,000 MG in 0.9 % Sodium Chloride 100 ML IVPB SCH (14:00)
[2019-07-15] MEDS: Gabapentin 300 MG CAPSULE PO SCH (21:37)
[2019-07-15] MEDS: QUEtiapine Fumarate 300 MG TABLET PO SCH (21:37)
[2019-07-16 02:29] LABS: Basophils % 0.3 %; Eosinophils # 0.2 K/mcL (0.0-0.6); Eosinophils % 2.4 %; Hematocrit 21.8 % (35.3-44.9); Hemoglobin 6.7 g/dL (11.5-15.4); Immature Granulocytes % 0.3 % (0-4); Lymphocytes # 1.1 K/mcL (0.6-4.6); Lymphocytes % 17.1 %; Mean Corpuscular HGB Conc 30.7 g/dL (31.6-35.5); Mean Corpuscular Hemoglobin 28.6 pg (28.0-33.3); Mean Corpuscular Volume 93.2 fL (83.0-100.0); Mean Platelet Volume 11.8 fL (9.4-12.4); Monocytes # 0.5 K/mcL (0.0-1.3); Monocytes % 7.3 %; Neutrophils # 4.8 K/mcL (1.6-8.9); Platelet Count 129 K/mcL (140-400); Red Blood Count 2.34 M/mcL (3.82-4.97); Red Cell Distribution Width 15.3 % (11.5-14.5); Segmented Neutrophils % 72.6 %; White Blood Count 6.6 K/mcL (4.3-11.1)
[2019-07-16 02:51] LABS: Calcium 7.6 mg/dL (8.6-10.3); Magnesium 1.8 mg/dL (1.6-2.6); Phosphorous 3.7 mg/dL (2.7-4.5); Potassium 4.9 mEq/L (3.5-5.1)
[2019-07-16] MEDS: *HR* Heparin 5,000 UNIT/ML VIAL SQ SCH ×2 (05:35→16:23)
[2019-07-16] MEDS ORDERED: 0.9 % Sodium Chloride 250 ML IVC SCH (07:30)
[2019-07-16] MEDS: Insulin LISPRO 300 UNITS/3 ML VIAL SQ SCH ×4 (07:49→20:20)
[2019-07-16] MEDS: Insulin DETEMIR 100 UNIT/ML X5UNITS SQ SCH ×2 (07:50→20:20)
[2019-07-16] MEDS: metroNIDAZOLE 500 MG TABLET PO SCH ×3 (07:50→20:20)
[2019-07-16] MEDS: Aspirin 81 MG TAB.CHEW PO SCH (07:50)
[2019-07-16] MEDS: lisinopriL 20 MG TABLET PO SCH (07:50)
[2019-07-16] MEDS: polyethylene glycoL 3350 17 GM POWD.PACK PO SCH (07:50)
[2019-07-16] MEDS: amLODIPine 5 MG TABLET PO SCH (07:50)
[2019-07-16] MEDS: carvediloL 6.25 MG TABLET PO SCH ×2 (07:50→16:23)
[2019-07-16] MEDS: Sennosides/Docusate Sodium TABLET PO SCH ×2 (07:51→20:20)
[2019-07-16] MEDS ORDERED: 0.9 % Sodium Chloride 250 ML ONE (08:08)
[2019-07-16 12:20] LABS: Hemoglobin 8.6 g/dL (11.5-15.4)
[2019-07-16] MEDS: QUEtiapine Fumarate 300 MG TABLET PO SCH (20:20)
[2019-07-16] MEDS: Gabapentin 300 MG CAPSULE PO SCH (20:20)
[2019-07-17 01:08] LABS: Basophils % 0.5 %; Eosinophils # 0.2 K/mcL (0.0-0.6); Eosinophils % 2.4 %; Hematocrit 24.5 % (35.3-44.9); Hemoglobin 7.7 g/dL (11.5-15.4); Immature Granulocytes % 0.2 % (0-4); Lymphocytes # 1.3 K/mcL (0.6-4.6); Mean Corpuscular HGB Conc 31.4 g/dL (31.6-35.5); Mean Corpuscular Hemoglobin 28.8 pg (28.0-33.3); Mean Corpuscular Volume 91.8 fL (83.0-100.0); Mean Platelet Volume 11.9 fL (9.4-12.4); Monocytes # 0.7 K/mcL (0.0-1.3); Monocytes % 9.8 %; Neutrophils # 4.5 K/mcL (1.6-8.9); Platelet Count 152 K/mcL (140-400); Red Blood Count 2.67 M/mcL (3.82-4.97); Red Cell Distribution Width 15.6 % (11.5-14.5); Segmented Neutrophils % 67.1 %; White Blood Count 6.6 K/mcL (4.3-11.1)
[2019-07-17 01:28] LABS: Calcium 7.6 mg/dL (8.6-10.3); Magnesium 1.8 mg/dL (1.6-2.6); Phosphorous 4.2 mg/dL (2.7-4.5); Potassium 5.5 mEq/L (3.5-5.1)
[2019-07-17] MEDS: *HR* Heparin 5,000 UNIT/ML VIAL SQ SCH (05:06)
[2019-07-17] MEDS: metroNIDAZOLE 500 MG TABLET PO SCH ×2 (07:56→15:31)
[2019-07-17] MEDS: polyethylene glycoL 3350 17 GM POWD.PACK PO SCH (07:56)
[2019-07-17] MEDS: Sennosides/Docusate Sodium TABLET PO SCH (07:56)
[2019-07-17] MEDS: lisinopriL 20 MG TABLET PO SCH (07:57)
[2019-07-17] MEDS: carvediloL 6.25 MG TABLET PO SCH (07:57)
[2019-07-17] MEDS: Aspirin 81 MG TAB.CHEW PO SCH (07:57)
[2019-07-17] MEDS: amLODIPine 5 MG TABLET PO SCH (07:57)
[2019-07-17] MEDS: Insulin LISPRO 300 UNITS/3 ML VIAL SQ SCH ×2 (08:02→11:21)
[2019-07-17] MEDS: Insulin DETEMIR 100 UNIT/ML X5UNITS SQ SCH (08:02)
[2019-07-17] MEDS ORDERED: 0.9 % Sodium Chloride 250 ML ONE (08:46)
[2019-07-17] MEDS ORDERED: 0.9 % Sodium Chloride 250 ML IVC PRN (11:02)
[2019-07-17] MEDS ORDERED: *HR* Heparin 10,000 UNIT/10 ML VIAL IV PRN (11:02)
[2019-07-17] MEDS ORDERED: Furosemide 40 MG/4 ML VIAL IVP ONE (12:07)
[2019-07-17 13:13] LABS: Basophils % 0.4 %; Eosinophils # 0.2 K/mcL (0.0-0.6); Eosinophils % 2.6 %; Hematocrit 31.8 % (35.3-44.9); Immature Granulocytes % 0.3 % (0-4); Lymphocytes # 1.2 K/mcL (0.6-4.6); Lymphocytes % 14.4 %; Mean Corpuscular HGB Conc 31.4 g/dL (31.6-35.5); Mean Corpuscular Hemoglobin 28.5 pg (28.0-33.3); Mean Corpuscular Volume 90.6 fL (83.0-100.0); Mean Platelet Volume 12.1 fL (9.4-12.4); Monocytes # 0.7 K/mcL (0.0-1.3); Monocytes % 8.2 %; Neutrophils # 5.9 K/mcL (1.6-8.9); Platelet Count 186 K/mcL (140-400); Red Blood Count 3.51 M/mcL (3.82-4.97); Red Cell Distribution Width 15.1 % (11.5-14.5); Segmented Neutrophils % 74.1 %
[2019-07-17] MEDS ORDERED: ceFAZolin 2,000 MG in 0.9 % Sodium Chloride 100 ML IVPB SCH (14:00)
[2019-07-17] MEDS ORDERED: ceFAZolin 2,000 MG in 0.9 % Sodium Chloride 100 ML IVPB ONE (14:30)
[2019-07-17 15:37] VITALS: BP 169/73
[2019-07-18] MEDS ORDERED: ceFAZolin 2,000 MG in 0.9 % Sodium Chloride 100 ML IVPB SCH (14:00)
== END 2019-07-17 16:37 | disposition home health service (06) | DRG 314 ==
LOC: 3BNU → SUATTDRO 15:45 → 2ANU 07-05 14:22 → 2NNU 07-10 17:37 → 2ANU 07-11 14:14 → 2NNU 07-14 14:30 → 2ANU 07-16 14:58
PROVIDERS: ADMIT Internal Medicine; ATTEND Internal Medicine
PROC: IRPERMA (2019-07-10 13:00)

== ENCOUNTER 2019-08-03 17:06 | Inpatient (IN) ==
[2019-08-03] MEDS ORDERED: Naloxone 0.4 MG/ML INJ IVP PRN (19:23)
[2019-08-03] MEDS ORDERED: Dextrose Gel 15 GM/37.5 ML TUBE PO PRN ×2 (19:27)
[2019-08-03] MEDS ORDERED: *HR* Dextrose 50 % in Water (Syg) 50 ML SYRINGE IVP PRN (19:27)
[2019-08-03] MEDS ORDERED: D5% in Water 1,000 ML IVC PRN (19:27)
[2019-08-03] MEDS ORDERED: 0.9 % Sodium Chloride 1,000 ML IVC SCH ×2 (19:30→20:12)
[2019-08-03 20:40] LABS: Calcium 8.5 mg/dL (8.6-10.3); Potassium 5.1 mEq/L (3.5-5.1)
[2019-08-03] MEDS ORDERED: Insulin DETEMIR 100 UNIT/ML X5UNITS SQ SCH (21:00)
[2019-08-03] MEDS: Gabapentin 300 MG CAPSULE PO SCH (21:44)
[2019-08-03] MEDS: QUEtiapine Fumarate 300 MG TABLET PO SCH (21:45)
[2019-08-03] MEDS ORDERED: Ipratropium/Albuterol Neb 3 ML IH PRN (22:00)
[2019-08-03] MEDS ORDERED: ceFAZolin 2,000 MG in 0.9 % Sodium Chloride 100 ML IVPB ONE (22:21)
[2019-08-04] MEDS: *HR* Heparin 5,000 UNIT/ML VIAL SQ SCH ×2 (00:06→11:32)
[2019-08-04 03:11] LABS: Basophils % 0.7 %; Eosinophils # 0.1 K/mcL (0.0-0.6); Eosinophils % 2.8 %; Hematocrit 31.7 % (35.3-44.9); Hemoglobin 9.5 g/dL (11.5-15.4); Immature Granulocytes % 0.2 % (0-4); Lymphocytes # 1.5 K/mcL (0.6-4.6); Lymphocytes % 31.7 %; Mean Corpuscular Hemoglobin 28.9 pg (28.0-33.3); Mean Corpuscular Volume 96.4 fL (83.0-100.0); Mean Platelet Volume 11.6 fL (9.4-12.4); Monocytes # 0.5 K/mcL (0.0-1.3); Neutrophils # 2.5 K/mcL (1.6-8.9); Platelet Count 152 K/mcL (140-400); Red Blood Count 3.29 M/mcL (3.82-4.97); Red Cell Distribution Width 16.9 % (11.5-14.5); Segmented Neutrophils % 54.6 %; White Blood Count 4.6 K/mcL (4.3-11.1)
[2019-08-04 03:31] LABS: Albumin 2.4 g/dL (3.5-5.7); Albumin/Globulin Ratio 0.9 (1.1-2.2); Bilirubin,Total 0.3 mg/dL (0.3-1.0); Calcium 7.8 mg/dL (8.6-10.3); Globulin 2.6 g/dL (2.4-3.5); Potassium 5.1 mEq/L (3.5-5.1)
[2019-08-04] MEDS: Insulin LISPRO 300 UNITS/3 ML VIAL SQ SCH ×3 (07:52→16:46)
[2019-08-04] MEDS: carvediloL 6.25 MG TABLET PO SCH ×2 (07:52→16:45)
[2019-08-04] MEDS: metroNIDAZOLE 500 MG TABLET PO SCH ×2 (14:44→21:02)
[2019-08-04] MEDS: Sennosides/Docusate Sodium TABLET PO SCH (21:01)
[2019-08-04] MEDS: QUEtiapine Fumarate 300 MG TABLET PO SCH (21:02)
[2019-08-04] MEDS: Gabapentin 300 MG CAPSULE PO SCH (21:02)
[2019-08-05] MEDS: ceFAZolin 1,000 MG in Water for inj. (sterile) 10 ML IVP SCH ×3 (00:22→23:29)
[2019-08-05] MEDS: *HR* Heparin 5,000 UNIT/ML VIAL SQ SCH ×3 (00:24→23:28)
[2019-08-05 08:06] LABS: VBG Ionized Calcium 1.06 mmol/L (1.15-1.35)
[2019-08-05 08:07] LABS: Basophils # 0.1 K/mcL (0.0-0.2); Basophils % 0.8 %; Eosinophils # 0.2 K/mcL (0.0-0.6); Eosinophils % 2.7 %; Hematocrit 34.4 % (35.3-44.9); Hemoglobin 10.3 g/dL (11.5-15.4); Immature Granulocytes % 0.2 % (0-4); Lymphocytes # 1.4 K/mcL (0.6-4.6); Lymphocytes % 20.9 %; Mean Corpuscular HGB Conc 29.9 g/dL (31.6-35.5); Mean Corpuscular Volume 96.9 fL (83.0-100.0); Mean Platelet Volume 12.4 fL (9.4-12.4); Monocytes # 0.5 K/mcL (0.0-1.3); Monocytes % 7.8 %; Neutrophils # 4.5 K/mcL (1.6-8.9); Platelet Count 144 K/mcL (140-400); Red Blood Count 3.55 M/mcL (3.82-4.97); Red Cell Distribution Width 16.7 % (11.5-14.5); Segmented Neutrophils % 67.6 %; White Blood Count 6.6 K/mcL (4.3-11.1)
[2019-08-05 08:26] LABS: Calcium 8.1 mg/dL (8.6-10.3); Phosphorous 4.8 mg/dL (2.7-4.5); Potassium 5.3 mEq/L (3.5-5.1); Uric Acid 6.4 mg/dL (2.3-7.6)
[2019-08-05] MEDS ORDERED: amLODIPine 5 MG TABLET PO SCH (09:00)
[2019-08-05] MEDS ORDERED: Aspirin 81 MG TAB.CHEW PO SCH (09:00)
[2019-08-05] MEDS: carvediloL 6.25 MG TABLET PO SCH ×2 (09:35→17:42)
[2019-08-05] MEDS: Sennosides/Docusate Sodium TABLET PO SCH ×2 (09:35→21:12)
[2019-08-05] MEDS: metroNIDAZOLE 500 MG TABLET PO SCH ×2 (09:36→21:12)
[2019-08-05] MEDS: Insulin LISPRO 300 UNITS/3 ML VIAL SQ SCH ×3 (09:36→17:22)
[2019-08-05] MEDS ORDERED: *HR* Midazolam HCl 2 MG/2 ML VIAL ONE (11:03)
[2019-08-05] MEDS ORDERED: *HR* FentaNYL (PF) 100 MCG/2 ML VIAL ONE ×2 (11:03→11:31)
[2019-08-05] MEDS ORDERED: *HR* Propofol 200 MG/20 ML VIAL IVP ONE ×2 (11:04→11:31)
[2019-08-05] MEDS ORDERED: Lidocaine -MPF 2% 2 ML VIAL ONE ×3 (11:04→11:34)
[2019-08-05] MEDS ORDERED: *HR* Succinylcholine 200 MG/10 ML VIAL IVP ONE ×2 (11:06→12:12)
[2019-08-05] MEDS ORDERED: Ondansetron 4 MG/2 ML VIAL ONE ×2 (11:30→11:34)
[2019-08-05] MEDS ORDERED: Dexamethasone 4 MG/ML VIAL ONE ×2 (11:30→11:34)
[2019-08-05] MEDS ORDERED: Acetaminophen IV 1,000 MG/100 ML INFUS..BTL ONE (12:01)
[2019-08-05] MEDS ORDERED: Famotidine 20 MG/2 ML VIAL ONE (12:02)
[2019-08-05] MEDS ORDERED: Vancomycin 1,000 MG VIAL ONE (12:03)
[2019-08-05] MEDS ORDERED: Lidocaine 1% 20 ML MDV ONE (12:03)
[2019-08-05] MEDS ORDERED: Lidocaine HCL 4 ML Topical Solution (Laryng-O-Jet Kit Sterile Pak) TP ONE ×2 (12:12)
[2019-08-05] MEDS ORDERED: EPHEDrine 50 MG/ML VIAL ONE (13:20)
[2019-08-05] MEDS ORDERED: *HR* Vasopressin 20 UNIT/ML VIAL ONE (13:38)
[2019-08-05] MEDS ORDERED: Ondansetron 4 MG/2 ML VIAL IVP ONE ×2 (13:52→15:06)
[2019-08-05] MEDS ORDERED: *HR* Promethazine 25 MG/ML VIAL IVP PRN ×2 (13:52→15:06)
[2019-08-05] MEDS ORDERED: *HR* OxyCODONE Immed Rel 5 MG TABLET PO PRN ×2 (13:52→15:06)
[2019-08-05] MEDS ORDERED: *HR* Dextrose 50 % in Water (Vial) 50 ML VIAL ONE (14:15)
[2019-08-05] MEDS ORDERED: Ipratropium/Albuterol Neb 3 ML IH PRN (15:06)
[2019-08-05] MEDS ORDERED: D5% in Water 1,000 ML IVC PRN (15:06)
[2019-08-05] MEDS ORDERED: Dextrose Gel 15 GM/37.5 ML TUBE PO PRN ×2 (15:06)
[2019-08-05] MEDS ORDERED: *HR* Dextrose 50 % in Water (Syg) 50 ML SYRINGE IVP PRN (15:06)
[2019-08-05] MEDS ORDERED: Naloxone 0.4 MG/ML INJ IVP PRN (15:06)
[2019-08-05] MEDS: Gabapentin 300 MG CAPSULE PO SCH (21:12)
[2019-08-05] MEDS: QUEtiapine Fumarate 300 MG TABLET PO SCH (21:12)
[2019-08-06] MEDS: Insulin LISPRO 300 UNITS/3 ML VIAL SQ SCH ×3 (07:52→17:35)
[2019-08-06] MEDS: metroNIDAZOLE 500 MG TABLET PO SCH ×3 (08:22→21:21)
[2019-08-06] MEDS: amLODIPine 5 MG TABLET PO SCH (08:22)
[2019-08-06] MEDS: Sennosides/Docusate Sodium TABLET PO SCH ×2 (08:22→21:22)
[2019-08-06] MEDS: Aspirin 81 MG TAB.CHEW PO SCH (08:22)
[2019-08-06] MEDS: carvediloL 6.25 MG TABLET PO SCH ×2 (08:23→17:34)
[2019-08-06] MEDS ORDERED: *HR* HYDROcodone/Acet 10/325 mg TABLET PO PRN (08:29)
[2019-08-06 08:59] LABS: Basophils % 0.5 %; Eosinophils # 0.1 K/mcL (0.0-0.6); Eosinophils % 1.4 %; Hematocrit 36.6 % (35.3-44.9); Immature Granulocytes % 0.5 % (0-4); Lymphocytes # 1.3 K/mcL (0.6-4.6); Lymphocytes % 19.1 %; Mean Corpuscular HGB Conc 30.1 g/dL (31.6-35.5); Mean Corpuscular Hemoglobin 28.9 pg (28.0-33.3); Mean Corpuscular Volume 96.3 fL (83.0-100.0); Mean Platelet Volume 11.9 fL (9.4-12.4); Monocytes # 0.5 K/mcL (0.0-1.3); Monocytes % 7.9 %; Neutrophils # 4.6 K/mcL (1.6-8.9); Platelet Count 171 K/mcL (140-400); Red Cell Distribution Width 16.5 % (11.5-14.5); Segmented Neutrophils % 70.6 %; White Blood Count 6.6 K/mcL (4.3-11.1)
[2019-08-06 09:17] LABS: Calcium 8.1 mg/dL (8.6-10.3); Potassium 5.3 mEq/L (3.5-5.1)
[2019-08-06] MEDS: *HR* Heparin 5,000 UNIT/ML VIAL SQ SCH (13:26)
[2019-08-06] MEDS: ceFAZolin 1,000 MG in Water for inj. (sterile) 10 ML IVP SCH (13:27)
[2019-08-06] MEDS: Gabapentin 300 MG CAPSULE PO SCH (21:21)
[2019-08-06] MEDS: QUEtiapine Fumarate 300 MG TABLET PO SCH (21:22)
[2019-08-07] MEDS: *HR* Heparin 5,000 UNIT/ML VIAL SQ SCH ×2 (00:40→09:07)
[2019-08-07] MEDS: ceFAZolin 1,000 MG in Water for inj. (sterile) 10 ML IVP SCH ×2 (00:40→12:15)
[2019-08-07 05:31] LABS: Basophils # 0.1 K/mcL (0.0-0.2); Basophils % 0.7 %; Eosinophils # 0.2 K/mcL (0.0-0.6); Eosinophils % 3.2 %; Hematocrit 31.6 % (35.3-44.9); Hemoglobin 9.6 g/dL (11.5-15.4); Immature Granulocytes % 0.3 % (0-4); Lymphocytes # 1.9 K/mcL (0.6-4.6); Lymphocytes % 26.9 %; Mean Corpuscular HGB Conc 30.4 g/dL (31.6-35.5); Mean Corpuscular Volume 95.5 fL (83.0-100.0); Monocytes # 0.7 K/mcL (0.0-1.3); Neutrophils # 4.2 K/mcL (1.6-8.9); Platelet Count 141 K/mcL (140-400); Red Blood Count 3.31 M/mcL (3.82-4.97); Red Cell Distribution Width 16.4 % (11.5-14.5); Segmented Neutrophils % 58.9 %; White Blood Count 7.1 K/mcL (4.3-11.1)
[2019-08-07 05:47] LABS: Calcium 7.7 mg/dL (8.6-10.3)
[2019-08-07] MEDS: Insulin LISPRO 300 UNITS/3 ML VIAL SQ SCH ×3 (07:43→16:02)
[2019-08-07] MEDS: carvediloL 6.25 MG TABLET PO SCH ×2 (07:43→17:08)
[2019-08-07] MEDS: Aspirin 81 MG TAB.CHEW PO SCH (07:44)
[2019-08-07] MEDS: metroNIDAZOLE 500 MG TABLET PO SCH ×3 (07:44→21:31)
[2019-08-07] MEDS: Sennosides/Docusate Sodium TABLET PO SCH ×2 (07:44→21:33)
[2019-08-07] MEDS: amLODIPine 5 MG TABLET PO SCH (07:44)
[2019-08-07] MEDS ORDERED: 0.9 % Sodium Chloride 1,000 ML IVC SCH ×2 (08:00→16:34)
[2019-08-07] MEDS ORDERED: *HR* Succinylcholine 200 MG/10 ML VIAL IVP ONE (14:19)
[2019-08-07] MEDS ORDERED: *HR* FentaNYL (PF) 100 MCG/2 ML VIAL ONE (14:22)
[2019-08-07] MEDS ORDERED: Lidocaine/EPI 1:200k 1% PF 10 ML VIAL ONE (14:51)
[2019-08-07] MEDS ORDERED: Bupivacaine/EPI 1:200k 0.25%PF 10 ML VIAL INFILT ONE (14:51)
[2019-08-07] MEDS ORDERED: Vancomycin 1,000 MG VIAL ONE (14:52)
[2019-08-07] MEDS ORDERED: *HR* Norepinephrine 4 MG/4 ML VIAL IVC ONE (14:54)
[2019-08-07] MEDS ORDERED: *HR* Midazolam HCl 2 MG/2 ML VIAL ONE (14:56)
[2019-08-07] MEDS ORDERED: Lidocaine 1% 20 ML MDV ONE (15:22)
[2019-08-07] MEDS ORDERED: *HR* Dextrose 50 % in Water (Syg) 50 ML SYRINGE IVP PRN (16:34)
[2019-08-07] MEDS ORDERED: D5% in Water 1,000 ML IVC PRN (16:34)
[2019-08-07] MEDS ORDERED: Ipratropium/Albuterol Neb 3 ML IH PRN (16:34)
[2019-08-07] MEDS ORDERED: Naloxone 0.4 MG/ML INJ IVP PRN (16:34)
[2019-08-07] MEDS ORDERED: Dextrose Gel 15 GM/37.5 ML TUBE PO PRN ×2 (16:34)
[2019-08-07 18:00] LABS: VBG Ionized Calcium 1.14 mmol/L (1.15-1.35)
[2019-08-07 18:10] LABS: Calcium 7.9 mg/dL (8.6-10.3); Potassium 5.7 mEq/L (3.5-5.1)
[2019-08-07] MEDS ORDERED: Gabapentin 300 MG CAPSULE PO SCH (21:00)
[2019-08-07] MEDS: QUEtiapine Fumarate 300 MG TABLET PO SCH (21:30)
[2019-08-07] MEDS: *HR* HYDROcodone/Acet 10/325 mg TABLET PO PRN (21:33)
[2019-08-08] MEDS: *HR* Heparin 5,000 UNIT/ML VIAL SQ SCH ×3 (00:15→23:32)
[2019-08-08] MEDS: ceFAZolin 1,000 MG in Water for inj. (sterile) 10 ML IVP SCH ×3 (00:16→23:32)
[2019-08-08] MEDS: *HR* HYDROcodone/Acet 10/325 mg TABLET PO PRN ×2 (04:13→16:46)
[2019-08-08 05:13] LABS: Basophils % 0.3 %; Eosinophils # 0.2 K/mcL (0.0-0.6); Eosinophils % 2.4 %; Hemoglobin 8.7 g/dL (11.5-15.4); Immature Granulocytes % 0.2 % (0-4); Lymphocytes # 1.1 K/mcL (0.6-4.6); Lymphocytes % 16.8 %; Mean Corpuscular Hemoglobin 29.1 pg (28.0-33.3); Mean Platelet Volume 12.2 fL (9.4-12.4); Monocytes # 0.7 K/mcL (0.0-1.3); Neutrophils # 4.3 K/mcL (1.6-8.9); Platelet Count 117 K/mcL (140-400); Red Blood Count 2.99 M/mcL (3.82-4.97); Red Cell Distribution Width 16.5 % (11.5-14.5); Segmented Neutrophils % 69.3 %; White Blood Count 6.3 K/mcL (4.3-11.1)
[2019-08-08 05:29] LABS: Calcium 7.6 mg/dL (8.6-10.3); Potassium 5.4 mEq/L (3.5-5.1)
[2019-08-08] MEDS: carvediloL 6.25 MG TABLET PO SCH ×2 (07:44→16:46)
[2019-08-08] MEDS: metroNIDAZOLE 500 MG TABLET PO SCH ×3 (07:44→20:25)
[2019-08-08] MEDS: Insulin LISPRO 300 UNITS/3 ML VIAL SQ SCH ×3 (07:44→16:46)
[2019-08-08] MEDS: Aspirin 81 MG TAB.CHEW PO SCH (07:44)
[2019-08-08] MEDS: Sennosides/Docusate Sodium TABLET PO SCH ×2 (07:45→20:25)
[2019-08-08] MEDS: amLODIPine 5 MG TABLET PO SCH (07:45)
[2019-08-08] MEDS: SODIUM ZIRCONIUM CYCLOSILICATE 5 GM POWD.PACK PO SCH (10:07)
[2019-08-08] MEDS: QUEtiapine Fumarate 300 MG TABLET PO SCH (20:24)
[2019-08-08] MEDS: Gabapentin 300 MG CAPSULE PO SCH (20:25)
[2019-08-09 06:54] LABS: Basophils % 0.3 %; Eosinophils # 0.1 K/mcL (0.0-0.6); Hemoglobin 9.4 g/dL (11.5-15.4); Immature Granulocytes % 0.3 % (0-4); Lymphocytes # 1.2 K/mcL (0.6-4.6); Lymphocytes % 19.9 %; Mean Corpuscular HGB Conc 30.3 g/dL (31.6-35.5); Mean Corpuscular Hemoglobin 28.6 pg (28.0-33.3); Mean Corpuscular Volume 94.2 fL (83.0-100.0); Mean Platelet Volume 12.1 fL (9.4-12.4); Monocytes # 0.7 K/mcL (0.0-1.3); Monocytes % 10.8 %; Neutrophils # 4.1 K/mcL (1.6-8.9); Platelet Count 131 K/mcL (140-400); Red Blood Count 3.29 M/mcL (3.82-4.97); Red Cell Distribution Width 16.3 % (11.5-14.5); Segmented Neutrophils % 66.7 %; White Blood Count 6.1 K/mcL (4.3-11.1)
[2019-08-09 06:58] LABS: INR 1.1; Prothrombin Time 12.1 Seconds (9.4-12.1)
[2019-08-09 07:06] LABS: Calcium 7.9 mg/dL (8.6-10.3); Potassium 5.2 mEq/L (3.5-5.1)
[2019-08-09] MEDS: metroNIDAZOLE 500 MG TABLET PO SCH ×3 (09:25→20:13)
[2019-08-09] MEDS: Sennosides/Docusate Sodium TABLET PO SCH ×2 (09:25→20:12)
[2019-08-09] MEDS: carvediloL 6.25 MG TABLET PO SCH ×2 (09:26→16:15)
[2019-08-09] MEDS: amLODIPine 5 MG TABLET PO SCH (09:26)
[2019-08-09] MEDS: SODIUM ZIRCONIUM CYCLOSILICATE 5 GM POWD.PACK PO SCH (09:27)
[2019-08-09] MEDS: Aspirin 81 MG TAB.CHEW PO SCH (09:27)
[2019-08-09] MEDS: Insulin LISPRO 300 UNITS/3 ML VIAL SQ SCH ×3 (12:05→16:15)
[2019-08-09] MEDS: *HR* Heparin 5,000 UNIT/ML VIAL SQ SCH (12:13)
[2019-08-09] MEDS: ceFAZolin 1,000 MG in Water for inj. (sterile) 10 ML IVP SCH (12:14)
[2019-08-09] MEDS: *HR* HYDROcodone/Acet 10/325 mg TABLET PO PRN (13:43)
[2019-08-09] MEDS: QUEtiapine Fumarate 300 MG TABLET PO SCH (20:13)
[2019-08-09] MEDS: Gabapentin 300 MG CAPSULE PO SCH (20:13)
[2019-08-10] MEDS: Insulin LISPRO 300 UNITS/3 ML VIAL SQ SCH ×5 (00:27→21:11)
[2019-08-10] MEDS: *HR* Heparin 5,000 UNIT/ML VIAL SQ SCH ×2 (00:27→11:56)
[2019-08-10] MEDS: ceFAZolin 1,000 MG in Water for inj. (sterile) 10 ML IVP SCH ×2 (00:29→11:57)
[2019-08-10 04:58] LABS: Calcium 7.9 mg/dL (8.6-10.3); Potassium 4.9 mEq/L (3.5-5.1)
[2019-08-10] MEDS: carvediloL 6.25 MG TABLET PO SCH ×2 (07:37→16:37)
[2019-08-10] MEDS: Sennosides/Docusate Sodium TABLET PO SCH ×2 (07:37→21:22)
[2019-08-10] MEDS: amLODIPine 5 MG TABLET PO SCH (07:37)
[2019-08-10] MEDS: Aspirin 81 MG TAB.CHEW PO SCH (07:37)
[2019-08-10] MEDS: metroNIDAZOLE 500 MG TABLET PO SCH ×3 (07:37→21:18)
[2019-08-10] MEDS: SODIUM ZIRCONIUM CYCLOSILICATE 5 GM POWD.PACK PO SCH (07:38)
[2019-08-10] MEDS ORDERED: levoFLOXacin 750 MG/150 ML 750 MG/150 ML BAG IVPB SCH (11:00)
[2019-08-10] MEDS ORDERED: levoFLOXacin 750 MG/150 ML 750 MG/150 ML BAG IVPB ONE (11:03)
[2019-08-10] MEDS ORDERED: amLODIPine 5 MG TABLET PO ONE (12:47)
[2019-08-10] MEDS: Insulin DETEMIR 100 UNIT/ML X5UNITS SQ SCH (14:08)
[2019-08-10] MEDS: Gabapentin 300 MG CAPSULE PO SCH (21:17)
[2019-08-10] MEDS: QUEtiapine Fumarate 300 MG TABLET PO SCH (21:19)
[2019-08-11] MEDS: *HR* Heparin 5,000 UNIT/ML VIAL SQ SCH ×2 (00:45→11:14)
[2019-08-11] MEDS: ceFAZolin 1,000 MG in Water for inj. (sterile) 10 ML IVP SCH ×2 (00:45→11:14)
[2019-08-11 04:36] LABS: Basophils % 0.3 %; Eosinophils # 0.2 K/mcL (0.0-0.6); Eosinophils % 2.9 %; Hematocrit 28.4 % (35.3-44.9); Hemoglobin 8.8 g/dL (11.5-15.4); Immature Granulocytes % 0.3 % (0-4); Lymphocytes # 1.2 K/mcL (0.6-4.6); Lymphocytes % 20.6 %; Mean Corpuscular Hemoglobin 28.9 pg (28.0-33.3); Mean Corpuscular Volume 93.4 fL (83.0-100.0); Mean Platelet Volume 11.5 fL (9.4-12.4); Monocytes # 0.6 K/mcL (0.0-1.3); Monocytes % 9.8 %; Neutrophils # 3.8 K/mcL (1.6-8.9); Platelet Count 149 K/mcL (140-400); Red Blood Count 3.04 M/mcL (3.82-4.97); Red Cell Distribution Width 16.2 % (11.5-14.5); Segmented Neutrophils % 66.1 %; White Blood Count 5.8 K/mcL (4.3-11.1)
[2019-08-11 04:56] LABS: Calcium 8.1 mg/dL (8.6-10.3); Potassium 5.7 mEq/L (3.5-5.1)
[2019-08-11] MEDS: carvediloL 6.25 MG TABLET PO SCH ×2 (07:38→16:17)
[2019-08-11] MEDS: metroNIDAZOLE 500 MG TABLET PO SCH ×2 (07:38→16:18)
[2019-08-11] MEDS: Sennosides/Docusate Sodium TABLET PO SCH (07:38)
[2019-08-11] MEDS: Aspirin 81 MG TAB.CHEW PO SCH (07:39)
[2019-08-11] MEDS: SODIUM ZIRCONIUM CYCLOSILICATE 5 GM POWD.PACK PO SCH (07:39)
[2019-08-11] MEDS: Insulin DETEMIR 100 UNIT/ML X5UNITS SQ SCH (07:39)
[2019-08-11] MEDS: Insulin LISPRO 300 UNITS/3 ML VIAL SQ SCH ×3 (07:41→16:16)
[2019-08-11] MEDS ORDERED: amLODIPine 5 MG TABLET PO SCH (09:00)
[2019-08-11 16:09] VITALS: BP 178/76
[2019-08-12] MEDS ORDERED: levoFLOXacin 500 MG/100 ML 500 MG/100 ML BAG IVPB SCH (11:00)
== END 2019-08-11 18:21 | DRG 793 ==
LOC: 3ANU → SUATTDRO 18:32
PROVIDERS: ADMIT Student in an Organized Health Care Education/Training Program; ATTEND Internal Medicine